=== PATIENT | female | born 1970 | race Caucasian/White ===

== ENCOUNTER → 2017-12-12 | Outpatient (CLI) | payer OTHER ==
[~2017-12-12] MED LIST: ACETAMINOPHEN-1 EAC1; BIRTH CONTROL; DESYREL50 MG PO; FLONASE 0.05%50 MCG NASAL; HYDROCODONE-AP1 EAC6 PO; IBUPROFEN 800800 M1 PO; IMITREX 50 MG T50 M1 PO; PERCOCET 5-3251 EACH PO; PRAVACHOL40 MG PO; VICODIN 5-5001 EACH PO; ZOFRAN ODT4 MG PO; ZOLOFT100 MG PO
== END ==
LOC: M.ULTRA 12-06 09:30 → M.RAD 12-06 10:20 → M.ULTRA 12-06 11:00
DX: Z12.31 Encounter for screening mammogram for malignant neoplasm of breast (principal); N83.201 Unspecified ovarian cyst, right side; N93.8 Other specified abnormal uterine and vaginal bleeding

== ENCOUNTER 2019-07-13 18:30 | Emergency (ER) | payer OTHER ==
[~2019-07-13] VITALS: Ht 165.1 cm; Wt 90.7 kg
[2019-07-13] MEDS ORDERED: NORCO 10-325 T1 EACH PO (20:46)
[2019-07-13 21:04] VITALS: BP 157/85
== END 2019-07-13 21:04 | disposition home or self-care (01) ==
LOC: M.ERS 18:30
DX: G89.29 Other chronic pain (principal); M54.5 Low back pain; N30.10 Interstitial cystitis (chronic) without hematuria; Z88.5 Allergy status to narcotic agent; Z88.8 Allergy status to other drugs, medicaments and biological substances; Z87.442 Personal history of urinary calculi; Z90.49 Acquired absence of other specified parts of digestive tract

== ENCOUNTER → 2019-08-01 | Outpatient (CLI) | payer OTHER ==
[~2019-08-01] MED LIST changes: +NORCO 10-325 T1 EACH PO
== END ==
LOC: M.MRI 07-26 14:54
DX: M54.16 Radiculopathy, lumbar region (principal); M12.88 Other specific arthropathies, not elsewhere classified, other specified site; M25.551 Pain in right hip; M25.552 Pain in left hip

== ENCOUNTER → 2019-08-13 | Outpatient (CLI) | payer OTHER ==
[~2019-08-13] MED LIST changes: +BRINTELLIX10 MG PO; +CLONAZEPAM 0.50.5 M1 PO; +PLAQUENIL200 MG PO; +PROPRANOLOL PO; +TOPAMAX 25 MG T25 M1 PO
== END ==
LOC: M.PC 01:19
DX: M47.816 Spondylosis without myelopathy or radiculopathy, lumbar region (principal); M51.36 Other intervertebral disc degeneration, lumbar region; M12.88 Other specific arthropathies, not elsewhere classified, other specified site; M79.604 Pain in right leg; M79.605 Pain in left leg

== ENCOUNTER → 2020-11-11 | Outpatient (CLI) | payer MEDICARE | END | disposition home or self-care (01) | LOC: M.RAD 10-31 15:16 | PROVIDERS: ATTEND Orthopaedic Surgery | DX: M25.552 Pain in left hip (principal); M16.12 Unilateral primary osteoarthritis, left hip; M54.5 Low back pain; G89.29 Other chronic pain ==

== ENCOUNTER → 2021-06-11 | Outpatient (CLI) | payer OTHER | LOC: M.CT 09:23 | PROVIDERS: ATTEND Family Medicine | DX: Z13.6 Encounter for screening for cardiovascular disorders (principal); I25.10 Atherosclerotic heart disease of native coronary artery without angina pectoris ==

== ENCOUNTER → 2021-06-11 | Outpatient (CLI) | payer MEDICARE | LOC: M.ULTRA 09:19 | PROVIDERS: ATTEND Family Medicine | DX: N83.292 Other ovarian cyst, left side (principal); N93.8 Other specified abnormal uterine and vaginal bleeding ==